=== PATIENT | female | born 1985 | race Caucasian/White ===

== ENCOUNTER 2021-05-27 21:04 | Emergency (ER) | payer OTHER ==
[2021-05-27 21:16] VITALS: BMI 28.3
[2021-05-27] MEDS ORDERED: SODIUM CHLORIDE 1,000 ML IV STA (22:14)
[2021-05-27 22:33] LABS: EPI CELLS 6 /uL (0-25.1); HCG,QUALITATIVE URINE Negative; HYALINE CASTS 1 /uL (0-3.1); PH,URINE 5.5 (5.0-8.0); URINE APPEARANCE TURBID; URINE BACTERIA >9,000 /uL (0-1359); URINE BILIRUBIN NEGATIVE (NEGATIVE); URINE COLOR YELLOW; URINE GLUCOSE (UA) NEGATIVE (NEGATIVE); URINE KETONE NEGATIVE (NEGATIVE); URINE LEUK ESTERASE 3+ (NEGATIVE); URINE NITRITE POSITIVE (NEGATIVE); URINE PROTEIN 1+ (NEGATIVE); URINE RBC 85 /uL (0-23.9); URINE WBC 4811 /uL (0-25.8)
[2021-05-27 22:57] LABS: BASO % 0.2 % (0-2.0); EOS % 0.1 % (0-4.5); HEMATOCRIT 37.1 % (32.4-45.2); LYMPH % 8.7 % (8-40); MCH 31.1 pg (25.7-33.7); MCHC 34.9 g/dl (32.0-36.0); MEAN CELL VOLUME 89.1 fl (80-96); MEAN PLT VOLUME 7.4 fl (7.5-11.1); MONO % 7.5 % (3.8-10.2); NEUT % 83.5 % (42.8-82.8); PLATELET COUNT 337 10^3/uL (134-434); RBC 4.17 M/mm3 (3.60-5.2); RDW 12.9 % (11.6-15.6); WHITE BLOOD COUNT 13.5 K/mm3 (4.0-10.0)
[2021-05-27] MEDS ORDERED: SULFAMETHOXAZOLE/TRIMETHOPRIM 800MG/160MG D.S. TABLET PO ONE (23:06)
[2021-05-27 23:21] LABS: YEAST NONE SEEN (NEGATIVE)
[2021-05-27 23:22] LABS: ALBUMIN 4.1 g/dl (3.4-5.0); BLOOD UREA NITROGEN 18.8 mg/dL (7-18)
[2021-05-27] MEDS ORDERED: SULFAMETHOXAZOLE/TRIMETHOPRIM 800MG/160MG D.S. TABLET ONE (23:22)
[2021-05-27 23:25] LABS: CREATININE 0.8 mg/dL (0.55-1.3)
[2021-05-27] MEDS ORDERED: CEFTRIAXONE 1 GM in DEXTROSE 5%-WATER - 100 ML IVPB ONE (23:25)
[2021-05-27] MEDS ORDERED: CEFTRIAXONE 1 GM/50 ML BAG ONE (23:25)
[2021-05-27 23:27] LABS: BILIRUBIN,TOTAL 0.5 mg/dL (0.2-1)
[2021-05-27 23:41] LABS: PLATELET ESTIMATE ADEQUATE
[2021-05-28] MEDS ORDERED: KETOROLAC TROMETHAMINE 15 MG/ML VIAL IVPUSH ONE (01:23)
[2021-05-28] MEDS ORDERED: KETOROLAC TROMETHAMINE 15 MG/ML VIAL ONE (01:24)
[2021-05-28 01:51] VITALS: BP 132/74; PULSE 89; TEMP 98.8
== END 2021-05-28 01:53 | disposition home or self-care (01) ==
LOC: JER 21:04
PROC: 3E03329 Introduction of Other Anti-infective into Peripheral Vein, Percutaneous Approach (ICD-10-PCS; principal; 2021-05-27)
PROC: 3E0333Z Introduction of Anti-inflammatory into Peripheral Vein, Percutaneous Approach (ICD-10-PCS; 2021-05-27)
PROC: 3E0337Z Introduction of Electrolytic and Water Balance Substance into Peripheral Vein, Percutaneous Approach (ICD-10-PCS; 2021-05-27)
DX: N10 Acute pyelonephritis (principal)
CPT/HCPCS: 36415; 74176-TC; 80053; 81003; 84703; 85025; 87086; 87186; 99284-25

== ENCOUNTER 2021-06-05 17:31 | Emergency (ER) | payer OTHER ==
[2021-06-05 18:02] VITALS: BP 109/74; PULSE 92; TEMP 98.1; BMI 28.3
== END 2021-06-05 18:52 | disposition home or self-care (01) ==
LOC: JERFT 17:31
DX: N30.00 Acute cystitis without hematuria (principal)
CPT/HCPCS: 99283-25

== ENCOUNTER 2022-02-05 21:18 | Emergency (ER) | payer OTHER ==
[2022-02-05 21:24] VITALS: BP 105/61; PULSE 62; TEMP 97; BMI 28.3
[2022-02-05] MEDS ORDERED: METOCLOPRAMIDE HCL INJECTION 10 MG/2 ML VIAL IVPUSH ONE (22:34)
[2022-02-05] MEDS ORDERED: SODIUM CHLORIDE 0.9% 500 ML INFUS.BAG IV ONE (22:34)
[2022-02-05] MEDS ORDERED: ACETAMINOPHEN 1000 MG/100 ML BAG IVPB ONE (22:34)
[2022-02-05] MEDS ORDERED: ACETAMINOPHEN/CAFFEINE/BUTALBITAL 1 TAB PO ONE (22:48)
[2022-02-05] MEDS ORDERED: ACETAMINOPHEN/CAFFEINE/BUTALBITAL 1 TAB ONE (22:49)
== END 2022-02-06 00:36 | disposition home or self-care (01) ==
LOC: JER 21:18
PROC: 3E033GC Introduction of Other Therapeutic Substance into Peripheral Vein, Percutaneous Approach (ICD-10-PCS; principal; 2022-02-05)
DX: G44.209 Tension-type headache, unspecified, not intractable (principal)
CPT/HCPCS: 99284-25